=== PATIENT | female | born 1980 | race Hispanic/Latino ===

== ENCOUNTER → 2023-08-07 09:08 | Outpatient (REF) | payer OTHER, SELFPAY | LOC: WDC 09:08 | PROVIDERS: ATTENDING PHYSICIAN Obstetrics & Gynecology; FAMILY PHYSICIAN Nurse Practitioner Family | DX: N64.3 Galactorrhea not associated with childbirth (principal); N64.52 Nipple discharge | CPT/HCPCS: 76642; 77062; 77066 ==

== ENCOUNTER → 2024-06-23 11:16 | Outpatient (REF) | payer OTHER, SELFPAY | LOC: HWRAD 11:16 | PROVIDERS: ATTENDING PHYSICIAN Nurse Practitioner Family | DX: R05.9 Cough, unspecified (principal) | CPT/HCPCS: 71046 ==

== ENCOUNTER → 2024-09-30 13:40 | Outpatient (REF) | payer OTHER, SELFPAY | LOC: WDC 13:40 | PROVIDERS: ATTENDING PHYSICIAN Obstetrics & Gynecology; FAMILY PHYSICIAN Nurse Practitioner Family | DX: Z12.31 Encounter for screening mammogram for malignant neoplasm of breast (principal) | CPT/HCPCS: 77063; 77067 ==

== ENCOUNTER → 2025-03-16 12:20 | Outpatient (REF) | payer OTHER, SELFPAY | LOC: HWRAD 12:20 | PROVIDERS: ATTENDING PHYSICIAN Nurse Practitioner Family; FAMILY PHYSICIAN Nurse Practitioner Family | DX: E06.3 Autoimmune thyroiditis (principal) | CPT/HCPCS: 76536 ==

== ENCOUNTER → 2025-05-04 09:04 | Outpatient (REF) | payer OTHER, SELFPAY | LOC: HWRAD 09:04 | PROVIDERS: ATTENDING PHYSICIAN Nurse Practitioner Family | DX: M54.50 Low back pain, unspecified (principal); M54.6 Pain in thoracic spine | CPT/HCPCS: 72072; 72110 ==

== ENCOUNTER → 2025-06-15 13:17 | Outpatient (REF) | payer OTHER, SELFPAY | LOC: HWRAD 13:17 | PROVIDERS: ATTENDING PHYSICIAN Obstetrics & Gynecology; FAMILY PHYSICIAN Nurse Practitioner Family | DX: N92.1 Excessive and frequent menstruation with irregular cycle (principal) | CPT/HCPCS: 76830; 76856 ==

== ENCOUNTER → 2025-06-22 15:57 | Outpatient (REF) | payer OTHER, SELFPAY | LOC: PAVMRI 15:57 | PROVIDERS: ATTENDING PHYSICIAN Neurological Surgery; FAMILY PHYSICIAN Nurse Practitioner Family | DX: G96.00 Cerebrospinal fluid leak, unspecified (principal) | CPT/HCPCS: 72148 ==

== ENCOUNTER → 2025-07-03 20:37 | Outpatient (REF) | payer OTHER, SELFPAY | LOC: MRI 20:37 | PROVIDERS: ATTENDING PHYSICIAN Neurological Surgery; FAMILY PHYSICIAN Nurse Practitioner Family | DX: G96.00 Cerebrospinal fluid leak, unspecified (principal) | CPT/HCPCS: 72146 ==